=== PATIENT | female | born 1970 | race Caucasian/White ===

== ENCOUNTER → 2016-10-11 | Outpatient (CLI) | payer OTHER | LOC: EDSTATUS 10-09 12:59 → PT 10-09 13:39 ==

== ENCOUNTER 2016-12-21 13:30 | Outpatient (RCR) | payer OTHER, BC | END 2016-12-21 14:59 | disposition home or self-care (01) | LOC: PT 13:30 | DX: Z47.89 Encounter for other orthopedic aftercare (principal) ==

== ENCOUNTER 2017-03-22 09:00 | Outpatient (RCR) | payer BC | END 2017-03-27 | disposition home or self-care (01) | LOC: PT | DX: Z47.89 Encounter for other orthopedic aftercare (principal) ==

== ENCOUNTER 2017-04-19 13:30 | Outpatient (RCR) | payer BC | END 2017-04-19 14:00 | disposition home or self-care (01) | LOC: PT 13:30 | DX: Z47.89 Encounter for other orthopedic aftercare (principal); M75.102 Unspecified rotator cuff tear or rupture of left shoulder, not specified as traumatic ==

== ENCOUNTER → 2018-03-14 | Outpatient (CLI) | payer BC ==
[2018-03-14 17:53] LABS: D-DIMER 0.3 mg/L FEU (0.15-0.50)
== END ==
LOC: LAB 17:24
PROVIDERS: Family Medicine
DX: R07.9 Chest pain, unspecified (principal)

== ENCOUNTER → 2019-02-21 | Outpatient (CLI) | payer BC | LOC: RAD 11:06 | DX: M79.672 Pain in left foot (principal) ==

== ENCOUNTER → 2022-07-24 | Day surgery (SDC) | payer BC | LOC: MSO 07:36 | DX: Z12.11 Encounter for screening for malignant neoplasm of colon (principal); D12.0 Benign neoplasm of cecum; K57.30 Diverticulosis of large intestine without perforation or abscess without bleeding | CPT/HCPCS: 00812; J2704; J3010; J7120 ==

== ENCOUNTER → 2024-03-12 | Outpatient (CLI) | payer BC | LOC: RAD 09:09 | DX: R10.31 Right lower quadrant pain (principal); Z90.710 Acquired absence of both cervix and uterus ==